=== PATIENT | female | born 1960 | race Caucasian/White ===

== ENCOUNTER 2023-08-25 18:11 | Emergency (ER) | payer MEDICARE, OTHER ==
[~2023-08-25] VITALS: Ht 157.5 cm; Wt 70.3 kg
[2023-08-25 18:53] VITALS: BP 146/93; TEMP 98.7; O2SAT 97
[2023-08-25] MEDS ORDERED: HYDR-3980 PO (20:30)
== END 2023-08-25 20:46 | disposition home or self-care (01) ==
LOC: ER 18:14
DX: M25.512 Pain in left shoulder (principal); Z79.899 Other long term (current) drug therapy
CPT/HCPCS: 73030-TC